=== PATIENT | female | born 1985 | race African-American/Black ===

== ENCOUNTER 2019-10-26 19:11 | Emergency (ER) | payer SELFPAY ==
--- NOTE | 2019-10-26 20:10 | NUR ---
PT NOT IN LOBBY WHEN CALLED FOR TRIAGE
--- OUTSIDE RECORDS SUMMARY | 2019-10-30 12:59 | XMS REPORT ---
Author [facility] Address Unknown Phone Unavailable Care Team Providers Care Meal Attendant Name Role Phone DR JULIA CHI Unavailable Unavailable Johnathon SANTORO Unavailable Unavailable Payers Payer Name Policy Type Policy Number Effective Date Expiration Date Problems This patient has no known problems. Allergies, Adverse Reactions, Alerts Allergy Name Allergy Type Status Severity Reaction(s) Onset Date Inactive Date Treating Clinician Comments Penicillins DA Active U 2019-01-29 00:00:00 Penicillins DA Active U 2017-06-05 00:00:00 Medications This patient has no known medications. Encounters Start Date/Time End Date/Time Encounter Type Admission Type Attending Clinicians Care Facility Care Department Encounter ID 2019-03-23 11:30:00 2019-03-25 12:51:00 Outpatient E [facility] [id number] 2018-05-08 13:38:00 2018-05-09 15:30:00 Emergency E ALEXEY SANTORO [facility] [id number] Results Test Description Test Time Test Comments Text Results Atomic Results Result Comments - CT ABD PELVIS W/CONT 2019-10-26 23:30:00 Name: LIONEL LIN [facility] : 1985 Age/S: 34 / F [place] Geronimo Unit #: [id number] Loc: [place] [address] Phys: Chantelle Londono INSPECTOR TOYS Acct: [id number] Dis Date: Status: REG ER PHONE #: [phone] Exam Date: 10/26/20192239 FAX #: [phone] Reason: R LOWER ABD PAIN EXAMS: CPT CODE: [id number] CT ABD PELVIS W/CONT 74606 AFTER HOURS SERVICE ON: 10/26/2019 11:[address] Scan of the Abdomen and Pelvis With Contrast Location Code M12 History: R LOWER ABD PAIN Technique: Axial and reconstructed coronal scans were performed on a helical scanner post IV contrast. Delayed scans were also obtained. One or more of the following dose reduction techniques were used: Automated exposure control, adjustment of the mA and/or kV according to patient size, and/or utilization of iterative reconstruction technique. Findings: LIVER: No significant findings. GALLBLADDER/BILIARY: Gallbladder is contracted. PANCREAS: No significant findings. SPLEEN: No significant findings. ADRENALS: No significant findings. KIDNEYS: There is a heterogeneously enhancing necrotic right lower pole renal mass measuring 3.0 x 2.6 x 2.5 cm there is a 1.4 cm right upper pole renal cyst. Left kidney is unremarkable. There is no hydronephrosis. There is no retroperitoneal adenopathy. BLADDER: No significant findings. GASTROINTESTINAL: No significant findings. The appendix is unremarkable. OTHER: Uterus is unremarkable. There is a small collapsing left ovarian cyst with enhancing wall measuring 1.6 cm posteriorly. In the right hemipelvis, there is a 3.9 x 2.5 cm cyst communicating through a thin stalk to a more superficial anterior pelvic soft tissues cyst measuring 2.9 x 1.8 cm. No destructive lytic lesions are seen in the spine. IMPRESSION: 3.0 cm suspicious heterogeneously enhancing necrotic right lower pole renal mass concerning for renal cell carcinoma. No retroperitoneal adenopathy. Right upper pole renal cyst. PAGE 1 Signed Report (CONTINUED) Name: LIONEL LIN [facility] : 1985 Age/S: 34 / F [address] [facility] Unit #: [id number] Loc: [place] [address] Phys: Chantelle Londono NP Acct: [id number] Dis Date: Status: REG ER PHONE #: [phone] Exam Date: 10/26/20192239 FAX #: [phone] Reason: R LOWER ABD PAIN EXAMS: CPT CODE: [id number] CT ABD PELVIS W/CONT 51074 <Continued> Small collapsing left ovarian cyst. No pelvic free fluid. Benign-appearing dumbbell shaped cystic hernia in the right hemipelvis extending just lateral to the rectus sheath. at 2330 Reported and signed by: Steven Arana M.D. CC: Hafsa Arias DO; Chantelle Londono NP Technologist:RT JOVANA CTDI: DLP: Trnscb Date/Time: 10/26/2019 (8880) [id number] Orig Print D/T: S: 10/26/2019 (1942) PAGE 2 Signed Report URINALYSIS COMPLETE 2019-10-26 22:50:00 UA COLOR (test code=COLU) Light-Yellow YELLOW UA APPEARANCE (test code=APPU) CLEAR CLEAR UA GLUCOSE DIPSTICK (test code=DGLUU) NEGATIVE mg/dL NEGATIVE UA BILIRUBIN DIPSTICK (test code=BILU) NEGATIVE mg/dL NEGATIVE UA KETONE DIPSTICK (test code=KETU) NEGATIVE mg/dL NEGATIVE UA SPECIFIC GRAVITY (test code=SGU) 1.022 1.001-1.035 UA BLOOD DIPSTICK (test code=SHAHLA) Negative mg/dL NEGATIVE UA PH DIPSTICK (test code=JAHAIRA) 6.0 5.0-8.0 UA PROTEIN DIPSTICK (test code=PROU) NEGATIVE mg/dL NEGATIVE UA UROBILINIOGEN DIPSTICK (test code=URO) Normal mg/dL NEGATIVE UA NITRITE DIPSTICK (test code=GUILHERME) NEGATIVE NEGATIVE UA LEUKOCYTE ESTERASE W REFLEX (test code=LEUUR) NEGATIVE Armin/uL NEGATIVE UA WBC (test code=WBCU) per HPF 0-5 UA RBC (test code=RBCU) per HPF 0-5 UA EPITHELIAL CELLS (test code=EPIU) per HPF Few UA BACTERIA (test code=BACU) per HPF NONE Urine Source? Clean CatchURINALYSIS [id number] 22:50:00* Test Item Value Reference Range Comments UA COLOR (test code=COLU) Light-Yellow YELLOW UA APPEARANCE (test code=APPU) CLEAR CLEAR UA GLUCOSE DIPSTICK (test code=DGLUU) NEGATIVE mg/dL NEGATIVE UA BILIRUBIN DIPSTICK (test code=BILU) NEGATIVE mg/dL NEGATIVE UA KETONE DIPSTICK (test code=KETU) NEGATIVE mg/dL NEGATIVE UA SPECIFIC GRAVITY (test code=SGU) 1.022 1.001-1.035 UA BLOOD DIPSTICK (test code=SHAHLA) Negative mg/dL NEGATIVE UA PH DIPSTICK (test code=JAHAIRA) 6.0 5.0-8.0 UA PROTEIN DIPSTICK (test code=PROU) NEGATIVE mg/dL NEGATIVE UA UROBILINIOGEN DIPSTICK (test code=URO) Normal mg/dL NEGATIVE UA NITRITE DIPSTICK (test code=GUILHERME) NEGATIVE NEGATIVE UA LEUKOCYTE ESTERASE W REFLEX (test code=LEUUR) NEGATIVE Armin/uL NEGATIVE UA WBC (test code=WBCU) 0-5 per HPF 0-5 UA RBC (test code=RBCU) 0-2 #/HPF 0-5 UA EPITHELIAL CELLS (test code=EPIU) FEW per HPF FEW UA BACTERIA (test code=BACU) NONE SEEN #/HPF NONE UA MUCUS (test code=MUCU) FEW #/LPF FEW Urine Source? Clean CatchBASIC METABOLIC [id number] 22:13:00* Test Item Value Reference Range Comments SODIUM (test code=NA) 141 mmol/L 136-145 POTASSIUM (test code=K) 4.3 mmol/L 3.5-5.1 CHLORIDE (test code=CL) 111.0 mmol/L 98-107 CARBON DIOXIDE (test code=CO2) 27.0 mmol/L 21-32 ANION GAP (test code=GAP) 7.3 10-20 GLUCOSE (test code=GLU) 77 mg/dL 74-106 BLOOD UREA NITROGEN (test code=BUN) 10 mg/dL 7-18 GLOMERULAR FILTRATION RATE (test code=GFR) > 60 mL/min >=60 Estimated GFR by using Modified MDRD formula.Chronic kidney disease is defined as either kidney damageor GFR <60 mL/min/1.73 m2 for >3 months. CREATININE (test code=CREAT) 0.90 mg/dL 0.55-1.02 Note change in reference range due to change in reagent. BUN/CREATININE RATIO (test code=BUN/CREA) 11.1 10-20 CALCIUM (test code=CA) 7.9 mg/dL 8.5-10.1 HEPATIC FUNCTION [id number] 22:13:00* Test Item Value Reference Range Comments TOTAL PROTEIN (test code=PROT) 6.0 gram/dL 6.4-8.2 ALBUMIN (test code=ALB) 2.6 g/dL 3.4-5.0 GLOBULIN (test code=GLOB) 3.4 gram/dL 2.7-4.2 ALBUMIN/GLOBULIN RATIO (test code=A/G) 0.8 0.75-1.50 BILIRUBIN TOTAL (test code=BILT) 0.10 mg/dL 0.0-1.0 BILIRUBIN DIRECT (test code=BILD) < 0.05 mg/dL 0.0-0.20 SGOT/AST (test code=AST) 15 IUnit/L 15-37 SGPT/ALT (test code=ALT) 17 IUnit/L 12-78 ALKALINE PHOSPHATASE TOTAL (test code=ALKP) 51 IUnit/L 45-117 Note change in reference range due to change in reagent. [id number] 22:13:00* Test Item Value Reference Range Comments LIPASE (test code=LIP) 145 U/L 73.0-393.0 HCG SERUM [id number] 22:13:00* Test Item Value Reference Range Comments HCG SERUM QUAL (test code=HCGQL) NEGATIVE NEGATIVE This HCGQL test is NOT applicable for MALE patients.Check with nurse about probable order error.If Tumor Marker Test needed, nurse should order test "HCGTU"(Test #550.90168) BASIC METABOLIC [id number] 22:07:00* Test Item Value Reference Range Comments SODIUM (test code=NA) 141 mmol/L 136-145 POTASSIUM (test code=K) 4.3 mmol/L 3.5-5.1 CHLORIDE (test code=CL) 111.0 mmol/L 98-107 CARBON DIOXIDE (test code=CO2) mmol/L 21-32 ANION GAP (test code=GAP) 10-20 GLUCOSE (test code=GLU) mg/dL 74-106 BLOOD UREA NITROGEN (test code=BUN) mg/dL 7-18 GLOMERULAR FILTRATION RATE (test code=GFR) mL/min >=60 CREATININE (test code=CREAT) mg/dL 0.55-1.02 BUN/CREATININE RATIO (test code=BUN/CREA) 10-20 CALCIUM (test code=CA) mg/dL 8.5-10.1 HEPATIC FUNCTION [id number] 22:07:00* Test Item Value Reference Range Comments TOTAL PROTEIN (test code=PROT) gram/dL 6.4-8.2 ALBUMIN (test code=ALB) g/dL 3.4-5.0 GLOBULIN (test code=GLOB) gram/dL 2.7-4.2 ALBUMIN/GLOBULIN RATIO (test code=A/G) 0.75-1.50 BILIRUBIN TOTAL (test code=BILT) mg/dL 0.0-1.0 BILIRUBIN DIRECT (test code=BILD) mg/dL 0.0-0.20 SGOT/AST (test code=AST) IUnit/L 15-37 SGPT/ALT (test code=ALT) IUnit/L 12-78 ALKALINE PHOSPHATASE TOTAL (test code=ALKP) IUnit/L 45-117 [id number] 22:07:00* Test Item Value Reference Range Comments LIPASE (test code=LIP) U/L 73.0-393.0 HCG SERUM [id number] 22:07:00* Test Item Value Reference Range Comments HCG SERUM QUAL (test code=HCGQL) NEGATIVE NEGATIVE This HCGQL test is NOT applicable for MALE patients.Check with nurse about probable order error.If Tumor Marker Test needed, nurse should order test "HCGTU"(Test #550.46143) CBC W/O [id number] 22:06:00* Test Item Value Reference Range Comments WHITE BLOOD CELL (test code=WBC) 13.1 K/mm3 4.5-12.5 RED BLOOD CELL (test code=RBC) 4.51 mill/mm3 3.7-5.2 HEMOGLOBIN (test code=HGB) 11.5 gram/dL 11.5-15.5 HEMATOCRIT (test code=HCT) 36.5 % 36.0-46.0 MEAN CELL VOLUME (test code=MCV) 80.9 fL 80-98 MEAN CELL HGB (test code=MCH) 25.5 picogram 27.0-33.0 MEAN CELL HGB CONCETRATION (test code=MCHC) 31.5 gram/dL 33.0-36.0 RED CELL DISTRIBUTION WIDTH (test code=RDW) 17.0 % 11.6-16.2 PLATELET COUNT (test code=PLT) 282 K/mm3 150-450 MEAN PLATELET VOLUME (test code=MPV) 10.3 fL 6.7-11.0 CBC W/O [id number] 22:04:00* Test Item Value Reference Range Comments WHITE BLOOD CELL (test code=WBC) K/mm3 4.5-12.5 RED BLOOD CELL (test code=RBC) mill/mm3 3.7-5.2 HEMOGLOBIN (test code=HGB) 11.5 gram/dL 11.5-15.5 HEMATOCRIT (test code=HCT) 36.5 % 36.0-46.0 MEAN CELL VOLUME (test code=MCV) fL 80-98 MEAN CELL HGB (test code=MCH) picogram 27.0-33.0 MEAN CELL HGB CONCETRATION (test code=MCHC) gram/dL 33.0-36.0 RED CELL DISTRIBUTION WIDTH (test code=RDW) % 11.6-16.2 PLATELET COUNT (test code=PLT) K/mm3 150-450 MEAN PLATELET VOLUME (test code=MPV) fL 6.7-11.0 BASIC METABOLIC [id number] 22:03:00* Test Item Value Reference Range Comments SODIUM (test code=NA) mmol/L 136-145 POTASSIUM (test code=K) mmol/L 3.5-5.1 CHLORIDE (test code=CL) mmol/L 98-107 CARBON DIOXIDE (test code=CO2) mmol/L 21-32 ANION GAP (test code=GAP) 10-20 GLUCOSE (test code=GLU) mg/dL 74-106 BLOOD UREA NITROGEN (test code=BUN) mg/dL 7-18 GLOMERULAR FILTRATION RATE (test code=GFR) mL/min >=60 CREATININE (test code=CREAT) mg/dL 0.55-1.02 BUN/CREATININE RATIO (test code=BUN/CREA) 10-20 CALCIUM (test code=CA) mg/dL 8.5-10.1 HEPATIC FUNCTION [id number] 22:03:00* Test Item Value Reference Range Comments TOTAL PROTEIN (test code=PROT) gram/dL 6.4-8.2 ALBUMIN (test code=ALB) g/dL 3.4-5.0 GLOBULIN (test code=GLOB) gram/dL 2.7-4.2 ALBUMIN/GLOBULIN RATIO (test code=A/G) 0.75-1.50 BILIRUBIN TOTAL (test code=BILT) mg/dL 0.0-1.0 BILIRUBIN DIRECT (test code=BILD) mg/dL 0.0-0.20 SGOT/AST (test code=AST) IUnit/L 15-37 SGPT/ALT (test code=ALT) IUnit/L 12-78 ALKALINE PHOSPHATASE TOTAL (test code=ALKP) IUnit/L 45-117 [id number] 22:03:00* Test Item Value Reference Range Comments LIPASE (test code=LIP) U/L 73.0-393.0 HCG SERUM [id number] 22:03:00* Test Item Value Reference Range Comments HCG SERUM QUAL (test code=HCGQL) NEGATIVE NEGATIVE This HCGQL test is NOT applicable for MALE patients.Check with nurse about probable order error.If Tumor Marker Test needed, nurse should order test "HCGTU"(Test #550.85236) BASIC METABOLIC [id number] 06:09:00* Test Item Value Reference Range Comments GLUCOSE (test code=06D) 87 mg/dL 75-100 SODIUM (test code=01A) 139 mmol/L 136-145 POTASSIUM (test code=01B) 4.1 mmol/L 3.6-5.1 CHLORIDE (test code=04A) 110 mmol/L 98-107 CO2 (test code=02A) 23 mmol/L 22-32 ANION GAP (test code=ANG) 10.1 mmol/L BUN (test code=05D) 11 mg/dL 7-18 CREATININE (test code=03E) 0.7 mg/dL 0.4-1.1 BUN/CREA (test code=BCR) 15 12-20 CALCIUM (test code=09D) 8.1 mg/dL 8.3-9.5 CBC (INCLUDES AUTOMATED DIFFERENTIAL)2019-03-24 06:06:00* Test Item Value Reference Range Comments WBC (test code=WBC) 7.5 10\\S\\3/uL 4.5-11.0 RBC (test code=RBC) 4.43 10\\S\\6/uL 4.30-5.70 HGB (test code=HBG) 11.3 g/dL 12.0-15.5 HCT (test code=HCT) 35.7 % 35.0-44.0 MCV (test code=MCV) 80.6 fL 81.0-99.0 MCH (test code=MCH) 25.5 pg 27.0-31.0 MCHC (test code=MCHC) 31.7 g/dL 32.0-36.0 RDW (test code=RDW) 16.4 % 11.5-14.5 PLT (test code=PLT) 164 10\\S\\3/uL 130-400 MPV (test code=MPV) 11.3 fL 9.4-12.4 NEUTROP # (test code=NE#) 3.3 10\\S\\3/uL 1.6-8.0 LYMPH # (test code=LY#) 3.4 10\\S\\3/uL 1.1-3.5 MONOCYTE # (test code=MO#) 0.6 10\\S\\3/uL 0.0-1.1 EOSINOPH # (test code=EO#) 0.1 10\\S\\3/uL 0.0-0.7 BASOPHIL # (test code=BA#) 0.0 10\\S\\3/uL 0.0-0.3 IG # (test code=IG#) 0.03 10\\S\\3/uL 0.00-0.06 NRBC # (test code=NRBC#) 0.00 10\\S\\3/uL 0.00-0.01 NEUTROPH % (test code=NE%) 44.6 % 35.0-73.0 LYMPH % (test code=LY%) 45.2 % 20.0-55.0 MONO % (test code=MO%) 7.6 % 2.5-10.0 EOSINOPH % (test code=EO%) 1.9 % 0.0-5.0 BASOPHIL % (test code=BA%) 0.3 % 0.0-2.0 IG % (test code=IG%) 0.4 % 0.0-0.8 NRBC% (test code=NRBC%) 0.0 % 0.0-0.2 MANDIFF (test code=MDIFF) NO NO RBC MORPH (test code=RBCMOR) NORMAL CARDIAC [id number] 00:37:00* Test Item Value Reference Range Comments TROPONIN I (test code=A84) <0.015 ng/mL 0.000-0.045 MRI BRAIN W/O [id number] 20:24:50MRI brain without contrast 03/23/2019 8:23 PMCLINICAL INDICATION: SyncopeTECHNIQUE: Multiplanar, multisequence MR imaging of the brain was performedutilizing the following imaging sequences: Axial T1, T2, FLAIR, GRE, and DWI;sagittal and coronal T1-weighted images.COMPARISON: None availableFINDINGS:Patient motion limits this examination. Pathology may be obscured.With this limitation in mind, there is no acute infarct, remarkable whitematter disease, hematoma, mass, hydrocephalus, or extra-axial collection.Normal appearing flow voids are present in the major intracranial vascularstructures. The sellar and pineal regions, craniocervical junction, orbits,face, and skull base are without worrisome finding.IMPRESSIO N:Motion limited, but otherwise unremarkable noncontrast examination.CARDIAC [id number] 19:29:00* Test Item Value Reference Range Comments TROPONIN I (test code=A84) <0.015 ng/mL 0.000-0.045 CARDIAC [id number] 13:01:00* Test Item Value Reference Range Comments TROPONIN I (test code=A84) <0.015 ng/mL 0.000-0.045 AMYLASE AND [id number] 09:32:00* Test Item Value Reference Range Comments AMYLASE (test code=10A) 75 U/L 28-100 LIPASE (test code=60A) 140 IU/L 73-393 COMPREHENSIVE METABOLIC [id number] 09:32:00* Test Item Value Reference Range Comments GLUCOSE (test code=06D) 88 mg/dL 75-100 SODIUM (test code=01A) 138 mmol/L 136-145 POTASSIUM (test code=01B) 4.1 mmol/L 3.6-5.1 CHLORIDE (test code=04A) 108 mmol/L 98-107 CO2 (test code=02A) 25 mmol/L 22-32 ANION GAP (test code=ANG) 9.1 mmol/L BUN (test code=05D) 10 mg/dL 7-18 CREATININE (test code=03E) 0.7 mg/dL 0.4-1.1 BUN/CREA (test code=BCR) 13 12-20 CALCIUM (test code=09D) 8.8 mg/dL 8.3-9.5 BILI TOTAL (test code=11A) 0.2 mg/dL 0.2-1.0 PROTEIN (test code=07D) 7.5 g/dL 6.4-8.2 ALBUMIN (test code=08D) 3.4 g/dL 3.5-4.8 GLOBULIN (test code=GLB) 4.1 g/dL 1.5-3.8 ALB/GLOB (test code=AGRR) 0.8 1.0-2.6 ALK PHOS (test code=35A) 67 IU/L 42-121 AST (test code=30A) 13 IU/L <=42 ALT (test code=31A) 14 IU/L <=78 ALCOHOL BLOOD (ETOH)2019-03-23 09:32:00* Test Item Value Reference Range Comments ETOH (test code=HALC) ETHANOL The result is to be used only for medical purposes ALCOHOL (test code=56A) <10 mg/dL <=10 CT HEAD W/O [id number] 09:17:15EXAM: CT HEAD W/O CONTRAST.LOCATION: D4.HISTORY: [id number]: Syncope.COMPARISON:CT head dated 02/27/2015 .TECHNIQUE: Multiple transaxial images were obtained from the skull base to the vertexwithout intravenous contrast.This exam was performed according to our departmental dose-optimizationprogram, which includes automated exposure control, adjustment of the mA and/orkV according to patient size, and/or use of iterative reconstruction technique.FINDINGS: There is no evidence of hemorrhage, mass, mass effect, or acute infarction. The CSF spaces and ventricles are within normal limits. The orbital contents are normal. The sinuses and mastoid air cells are clear. The skull is intact. IMPRESSION:No evidence of acute intracranial abnormality. THYROID PANEL/SCREEN (TSH)2019-03-23 09:10:00* Test Item Value Reference Range Comments TSH (test code=A57) 0.803 uIU/mL 0.358-3.740 [id number] 08:55:00* Test Item Value Reference Range Comments MAGNESIUM (test code=48A) 2.1 mg/dL 1.8-2.4 DRUGS OF [id number] 08:54:00* Test Item Value Reference Range Comments DRUG SCRN (test code=HDOA) URINE DRUG SCREEN This is an unconfirmed screening result and should not be used for non-medical purposes CANNABINOD (test code=88C) POSITIVE NEGATIVE AMPHETAMINE (test code=84A) POSITIVE NEGATIVE BENZODIAZP (test code=86A) Negative NEGATIVE BARBITURAT (test code=85A) Negative NEGATIVE OPIATES (test code=92B) Negative NEGATIVE COCAINE (test code=87A) Negative NEGATIVE PHENCYCLID (test code=66A) Negative NEGATIVE METHADONE (test code=64A) Negative NEGATIVE DOAH (test code=DOAH.) URINE DRUG SCREEN Cut-off values are as follows: Cannabinoids 50 ng/mL Cocaine 300 ng/mL Amphetamines 1000 ng/mL Phencyclidine 25 ng/mL Benzodiazepines 200 ng.mL Methadone 300 ng/mL Barbiturates 200 ng/mL Opiates 2000 ng/mL SERUM [id number] 08:54:00* Test Item Value Reference Range Comments PREG SRM (test code=PGS) NEGATIVE NEGATIVE [id number] 08:49:00* Test Item Value Reference Range Comments COLOR (test code=COLU) YELLOW YELLOW CLARITY (test code=CLA) CLEAR CLEAR GLUCOSE UR (test code=UA GLUCOSE) NEGATIVE NEGATIVE BILI UR (test code=BILE) NEGATIVE NEGATIVE KETONES UR (test code=STEPHEN) NEGATIVE NEGATIVE SP GRAVITY (test code=SPGR) 1.021 1.005-1.030 PH UR (test code=PH) 6.0 4.5-8.0 PROTEIN UR (test code=PU) NEGATIVE NEGATIVE UROBIL UR (test code=UROQ) 1.0 EU/dL 0.2-1.0 NITRITE UR (test code=NITRITE) NEGATIVE NEGATIVE BLOOD UR (test code=UA BLOOD) NEGATIVE NEGATIVE LEUK ES UR (test code=LEUK) NEGATIVE NEGATIVE CBC (INCLUDES AUTOMATED DIFFERENTIAL)2019-03-23 08:44:00* Test Item Value Reference Range Comments WBC (test code=WBC) 10.5 10\\S\\3/uL 4.5-11.0 RBC (test code=RBC) 4.71 10\\S\\6/uL 4.30-5.70 HGB (test code=HBG) 12.0 g/dL 12.0-15.5 HCT (test code=HCT) 37.7 % 35.0-44.0 MCV (test code=MCV) 80.0 fL 81.0-99.0 MCH (test code=MCH) 25.5 pg 27.0-31.0 MCHC (test code=MCHC) 31.8 g/dL 32.0-36.0 RDW (test code=RDW) 16.7 % 11.5-14.5 PLT (test code=PLT) 211 10\\S\\3/uL 130-400 MPV (test code=MPV) 11.5 fL 9.4-12.4 NEUTROP # (test code=NE#) 6.7 10\\S\\3/uL 1.6-8.0 LYMPH # (test code=LY#) 2.8 10\\S\\3/uL 1.1-3.5 MONOCYTE # (test code=MO#) 0.8 10\\S\\3/uL 0.0-1.1 EOSINOPH # (test code=EO#) 0.2 10\\S\\3/uL 0.0-0.7 BASOPHIL # (test code=BA#) 0.0 10\\S\\3/uL 0.0-0.3 IG # (test code=IG#) 0.04 10\\S\\3/uL 0.00-0.06 NRBC # (test code=NRBC#) 0.00 10\\S\\3/uL 0.00-0.01 NEUTROPH % (test code=NE%) 64.2 % 35.0-73.0 LYMPH % (test code=LY%) 26.4 % 20.0-55.0 MONO % (test code=MO%) 7.3 % 2.5-10.0 EOSINOPH % (test code=EO%) 1.5 % 0.0-5.0 BASOPHIL % (test code=BA%) 0.2 % 0.0-2.0 IG % (test code=IG%) 0.4 % 0.0-0.8 NRBC% (test code=NRBC%) 0.0 % 0.0-0.2 MANDIFF (test code=MDIFF) NO NO RBC MORPH (test code=RBCMOR) NORMAL BASIC METABOLIC [id number] 15:43:00* Test Item Value Reference Range Comments SODIUM (test code=NA) 140 mmol/L 136-145 POTASSIUM (test code=K) 4.1 mmol/L 3.5-5.1 CHLORIDE (test code=CL) 109.0 mmol/L 98-107 CARBON DIOXIDE (test code=CO2) 26.0 mmol/L 21-32 ANION GAP (test code=GAP) 9.1 10-20 GLUCOSE (test code=GLU) 88 mg/dL 74-106 BLOOD UREA NITROGEN (test code=BUN) 7 mg/dL 7-18 GLOMERULAR FILTRATION RATE (test code=GFR) > 60 mL/min >=60 Estimated GFR by using Modified MDRD formula.Chronic kidney disease is defined as either kidney damageor GFR <60 mL/min/1.73 m2 for >3 months. CREATININE (test code=CREAT) 0.90 mg/dL 0.55-1.02 Note change in reference range due to change in reagent. BUN/CREATININE RATIO (test code=BUN/CREA) 7.8 10-20 CALCIUM (test code=CA) 8.6 mg/dL 8.5-10.1 HCG SERUM [id number] 15:43:00* Test Item Value Reference Range Comments HCG SERUM QUAL (test code=HCGQL) NEGATIVE NEGATIVE This HCGQL test is NOT applicable for MALE patients.Check with nurse about probable order error.If Tumor Marker Test needed, nurse should order test "HCGTU"(Test #550.25366) [id number] 15:43:00* Test Item Value Reference Range Comments TROPONIN-I (test code=TROPI) <0.015 ng/mL 0-0.045 BASIC METABOLIC [id number] 15:38:00* Test Item Value Reference Range Comments SODIUM (test code=NA) 140 mmol/L 136-145 POTASSIUM (test code=K) 4.1 mmol/L 3.5-5.1 CHLORIDE (test code=CL) 109.0 mmol/L 98-107 CARBON DIOXIDE (test code=CO2) 26.0 mmol/L 21-32 ANION GAP (test code=GAP) 9.1 10-20 GLUCOSE (test code=GLU) 88 mg/dL 74-106 BLOOD UREA NITROGEN (test code=BUN) 7 mg/dL 7-18 GLOMERULAR FILTRATION RATE (test code=GFR) > 60 mL/min >=60 Estimated GFR by using Modified MDRD formula.Chronic kidney disease is defined as either kidney damageor GFR <60 mL/min/1.73 m2 for >3 months. CREATININE (test code=CREAT) 0.90 mg/dL 0.55-1.02 Note change in reference range due to change in reagent. BUN/CREATININE RATIO (test code=BUN/CREA) 7.8 10-20 CALCIUM (test code=CA) 8.6 mg/dL 8.5-10.1 HCG SERUM [id number] 15:38:00* Test Item Value Reference Range Comments HCG SERUM QUAL (test code=HCGQL) NEGATIVE [id number] 15:38:00* Test Item Value Reference Range Comments TROPONIN-I (test code=TROPI) <0.015 ng/mL 0-0.045 BASIC METABOLIC [id number] 15:32:00* Test Item Value Reference Range Comments SODIUM (test code=NA) 140 mmol/L 136-145 POTASSIUM (test code=K) 4.1 mmol/L 3.5-5.1 CHLORIDE (test code=CL) 109.0 mmol/L 98-107 CARBON DIOXIDE (test code=CO2) mmol/L 21-32 ANION GAP (test code=GAP) 10-20 GLUCOSE (test code=GLU) mg/dL 74-106 BLOOD UREA NITROGEN (test code=BUN) mg/dL 7-18 GLOMERULAR FILTRATION RATE (test code=GFR) mL/min >=60 CREATININE (test code=CREAT) mg/dL 0.55-1.02 BUN/CREATININE RATIO (test code=BUN/CREA) 10-20 CALCIUM (test code=CA) 8.6 mg/dL 8.5-10.1 HCG SERUM [id number] 15:32:00* Test Item Value Reference Range Comments HCG SERUM QUAL (test code=HCGQL) NEGATIVE [id number] 15:32:00* Test Item Value Reference Range Comments TROPONIN-I (test code=TROPI) ng/mL 0-0.045 CBC W/O [id number] 15:10:00* Test Item Value Reference Range Comments WHITE BLOOD CELL (test code=WBC) 9.5 K/mm3 4.5-12.5 RED BLOOD CELL (test code=RBC) 4.80 mill/mm3 3.7-5.2 HEMOGLOBIN (test code=HGB) 12.0 gram/dL 11.5-15.5 HEMATOCRIT (test code=HCT) 39.3 % 36.0-46.0 MEAN CELL VOLUME (test code=MCV) 81.9 fL 80-98 MEAN CELL HGB (test code=MCH) 25.0 picogram 27.0-33.0 MEAN CELL HGB CONCETRATION (test code=MCHC) 30.5 gram/dL 33.0-36.0 RED CELL DISTRIBUTION WIDTH (test code=RDW) 16.1 % 11.6-16.2 PLATELET COUNT (test code=PLT) 277 K/mm3 150-450 MEAN PLATELET VOLUME (test code=MPV) 11.1 fL 6.7-11.0 CBC W/O [id number] 15:09:00* Test Item Value Reference Range Comments WHITE BLOOD CELL (test code=WBC) K/mm3 4.5-12.5 RED BLOOD CELL (test code=RBC) mill/mm3 3.7-5.2 HEMOGLOBIN (test code=HGB) 12.0 gram/dL 11.5-15.5 HEMATOCRIT (test code=HCT) 39.3 % 36.0-46.0 MEAN CELL VOLUME (test code=MCV) fL 80-98 MEAN CELL HGB (test code=MCH) picogram 27.0-33.0 MEAN CELL HGB CONCETRATION (test code=MCHC) gram/dL 33.0-36.0 RED CELL DISTRIBUTION WIDTH (test code=RDW) % 11.6-16.2 PLATELET COUNT (test code=PLT) K/mm3 150-450 MEAN PLATELET VOLUME (test code=MPV) fL 6.7-11.0 - XR CHEST 1 [id number] 14:22:00 FAX: Shekhar Charles DO [place]: [address] St: REG Name: Sweta LIONEL NAIR [facility] : [birth year] Age/S: 33/F [address] Unit #: [id number] Loc: [facility] [place] [id number] Phys: Shekhar Charles DO Acct: [id number] Dis Date: Status: REG ER PHONE #: [phone] Exam Date: 01/29/2019 1418 FAX #: [phone] Reason: CHEST PAIN EXAMS: CPT CODE: [id number] XR CHEST 1 V [id number] EXAM: Chest X-ray, 1 view; CLINICAL HISTORY: Chest pain; FINDINGS: The lungs are clear, no infiltrates, no edema; no effusions; no pneumothorax; n ormal cardiomediastinal silhouette. IMPRESSION: Normal chest x-ray. at 1422 Reported and signed by: Dinesh Bello M.D. CC: Shekhar Charles DO Technologist: RT ABI(Blanca) Trnvalogan Date/Time/By: 0 01/29/2019 (7017) : By: [email or web address] Orig Print D/T: S: 01/29/2019 (1616) PAGE 1 Signed Report XR FOOT RIGHT COMPLETE 3 [id number] 14:29:52Right foot, 3 viewsLocation Code: [id number] HISTORY: Bone injuryCOMMENTS: AP, lateral, and oblique views of the right foot demonstrate no acutefracture or malalignment. The soft tissues are unremarkable.IMPRESSION: No acute radiographic abnormality.
== END 2019-10-26 20:10 | disposition short-term general hospital (02) ==
LOC: FSED 19:11
DX: R10.9 Unspecified abdominal pain (principal)